=== PATIENT | female | born 1945 | race African-American/Black ===

== ENCOUNTER → 2016-07-16 | Outpatient (CLI) | payer BC ==
[2015-09-10 17:48] VITALS: BP 131/78
[~2016-07-16] MED LIST: ALPR0.5T PO; AMIT50TA PO; ASPI81TA2 PO; CARV25TA2 PO; FAMO-63 PO; LOSA100T6 PO; SIMV20TA3 PO; SIMV40TA3 PO
--- NOTE | 2016-07-16 15:48 | CARD ---
APPROVED REPORT EXAM: Two-dimensional and M-mode echocardiogram with Doppler and color Doppler. Other Information Quality : Average Rhythm : NSR with PACS, PPM INDICATION Cardiomyopathy 2D DIMENSIONS RVDd2.7 (2.9-3.5cm)Left Atrium(2D)3.9 (1.6-4.0cm) IVSd0.7 (0.7-1.1cm)Aortic Root(2D)2.6 (2.0-3.7cm) LVDd5.3 (3.9-5.9cm)LVOT Diameter2.0 (1.8-2.4cm) PWd0.7 (0.7-1.1cm)LVDs4.2 (2.5-4.0cm) FS (%) 19.7 %SV53.9 ml LVEF(%)40.1 (>50%) Aortic Valve AoV Peak Chester.130.8cm/sAoV VTI25.7cm AO Peak GR.6.8mmHgLVOT Peak Chester.89.0cm/s LVOT VTI 21.11cmAO Mean GR.4mmHg JENISE (VMAX)2.42ru9TMJ (VTI)2.47cm2 AI P 1/2 Kmmh089zi Mitral Valve MV E Ctlrjunx300.5cm/sMV DECEL DIDD034ux MV A Iknaeftr633.9cm/sMV E Mean Gr.3mmHg MV XSJ17odJ/A Ratio1.0 MV A Yifnbvet234jmMNU (PHT)6.54cm2 TDI E/Lateral E'15.5E/Medial E'16.3 Pulmonary Valve PV Peak Xituoomy82.3cm/sPV Peak Grad.3mmHg RVOT VTI12.4cm Tricuspid Valve TR P. Ntwcjpna620wb/sRAP WASCAKDF2wfKo TR Peak Gr.37tzCsIOQL48hpOn Pulmonary Vein S1 Tryivvak17.6cm/sD2 Tiiqkamv15.9cm/s LEFT VENTRICLE The left ventricle is normal size. There is normal left ventricular wall thickness. Left ventricle sy stolic function is mildly impaired. The Ejection Fraction is 40-45%. Septal motion consistent with co nduction abnormality. The left ventricular diastolic function and filling is normal for age. There is no ventricular septal defect visualized. RIGHT VENTRICLE The right ventricle is normal size. The right ventricular systolic function is normal. There is a pac emaker/ICD lead seen in the RV/RA. ATRIA The left atrium size is normal. The right atrium size is normal. The interatrial septum is intact wit h no evidence for an atrial septal defect or patent foramen ovale as noted on 2-D or Doppler imaging. Pacemaker lead noted in right atrium and right ventricle. AORTIC VALVE The aortic valve is normal in structure and function. The aortic valve is trileaflet. Doppler and Col or Flow revealed trace to mild aortic regurgitation. There is no significant aortic valvular stenosis . MITRAL VALVE Status post mitral valve ring. The mitral valve leaflets appear nomal in function. There is no mitral valve stenosis. Doppler and Color Flow revealed mild mitral regurgitation. TRICUSPID VALVE The tricuspid valve is normal in structure and function. Doppler and Color Flow revealed mild tricusp id regurgitation. The PA pressure was estimated at 33 mmHg. There is no tricuspid valve stenosis. PULMONIC VALVE The pulmonic valve is not well visualized. Doppler and Color Flow revealed mild pulmonic valvular reg urgitation. There is no pulmonic valvular stenosis. GREAT VESSELS The aortic root is normal in size. Normal pulmonary venous flow (Doppler). The IVC is normal in size and collapses >50% with inspiration. PERICARDIAL EFFUSION There is no evidence of significant pericardial effusion. Critical Notification Critical Value: No <Conclusion> Left ventricle systolic function is mildly impaired. The Ejection Fraction is 40-45%. Pacemaker lead noted in right atrium and right ventricle. Trace to mild aortic regurgitation. Mild mitral regurgitation. Mild tricuspid regurgitation. The PA pressure was estimated at 33 mmHg. There is no evidence of significant pericardial effusion.
== END | disposition home or self-care (01) ==
LOC: ECHO 08:46
PROVIDERS: ATTEND Internal Medicine Cardiovascular Disease
DX: I42.9 Cardiomyopathy, unspecified (principal); I08.3 Combined rheumatic disorders of mitral, aortic and tricuspid valves
CPT/HCPCS: 93306

== ENCOUNTER → 2016-12-21 | Outpatient (CLI) | payer BC ==
[2015-09-10 17:48] VITALS: BP 131/78
[~2016-12-21] MED LIST changes: +ASPI-630 PO; -ASPI81TA2 PO
== END | disposition home or self-care (01) ==
LOC: RT 18:21
PROVIDERS: ATTEND Internal Medicine Cardiovascular Disease
DX: G47.33 Obstructive sleep apnea (adult) (pediatric) (principal)
CPT/HCPCS: 95810

== ENCOUNTER → 2017-02-17 | Outpatient (CLI) | payer BC ==
[2015-09-10 17:48] VITALS: BP 131/78
--- NOTE | 2017-02-17 14:23 | RAD ---
2 views of the Chest 02/17/2017 2:00 AM Indication: DYSPNEA Comparison: Chest radiograph September 05, 2015 Findings: There is a dual-lead pacemaking/ICD device from a left subclavian approach, grossly similar are study. Prior valve repair noted. Heart size is stable. Decreased inspiratory volumes are noted which augments the cardiomediastinal silhouette and pulmonary vasculature. Possible minimal basilar atelectasis is seen. No acute osseous changes are identified. Impression: Low lung volumes with possible mild basilar atelectasis. No other acute cardiopulmonary process is seen.
== END | disposition home or self-care (01) ==
LOC: RAD 13:33
PROVIDERS: ATTEND Internal Medicine Critical Care Medicine
DX: R91.8 Other nonspecific abnormal finding of lung field (principal); R06.00 Dyspnea, unspecified
CPT/HCPCS: 71020

== ENCOUNTER → 2017-05-07 | Outpatient (CLI) | payer BC ==
[2017-05-07 12:06] LABS: BLOOD UREA NITROGEN 14 mg/dL (7-20)
[2017-05-07 12:06] LABS: CREATININE 1.3 mg/dL (0.6-1.0); GFR 48.7
[2017-05-07] MEDS: IOHEXOL 300 MG/ML 100ML VIAL. IV ×2 (12:28)
== END | disposition home or self-care (01) ==
LOC: CT 11:17
DX: J40 Bronchitis, not specified as acute or chronic (principal); J98.11 Atelectasis; I51.7 Cardiomegaly; E01.0 Iodine-deficiency related diffuse (endemic) goiter
CPT/HCPCS: 36415; 71275; 82565; 84520; Q9967

== ENCOUNTER → 2017-05-21 | Outpatient (CLI) | payer BC | END | disposition home or self-care (01) | LOC: ECHO 09:05 | DX: I08.3 Combined rheumatic disorders of mitral, aortic and tricuspid valves (principal); I70.0 Atherosclerosis of aorta; E66.9 Obesity, unspecified; Z95.0 Presence of cardiac pacemaker | CPT/HCPCS: 93306 ==

== ENCOUNTER 2017-06-14 08:49 | Outpatient (CLI) | payer BC ==
[~2017-06-14 08:49] MED LIST changes: -ALPR0.5T PO; -AMIT50TA PO; -ASPI-630 PO; -CARV25TA2 PO; -FAMO-63 PO; +IODIXANOL 320 MG/ML 100 ML VIAL.; +LIDOCAINE 2% 20 ML VIAL.; -LOSA100T6 PO; -SIMV20TA3 PO; -SIMV40TA3 PO
[2017-06-14 09:16] LABS: HEMATOCRIT 41.7 % (36.0-47.0); HEMOGLOBIN 13.8 g/dL (12.0-15.5); MEAN CORPUSCULAR HEMOGLOBIN 32 pg (25-35); MEAN CORPUSCULAR HGB CONC 33 g/dL (31-37); MEAN CORPUSCULAR VOLUME 96 fL (79-100); PLATELET COUNT 223 x10^3/uL (140-400); RED BLOOD COUNT 4.34 x10^6/uL (3.50-5.40); WHITE BLOOD COUNT 8.7 x10^3/uL (4.0-11.0)
[2017-06-14 09:23] LABS: ANION GAP 9 (6-14); BLOOD UREA NITROGEN 13 mg/dL (7-20); CALCIUM 8.8 mg/dL (8.5-10.1); CARBON DIOXIDE 27 mmol/L (21-32); CHLORIDE 109 mmol/L (98-107); CREATININE 1.2 mg/dL (0.6-1.0); GFR 53.4; GLUCOSE 120 mg/dL (70-99); POTASSIUM 4.2 mmol/L (3.5-5.1); SODIUM 145 mmol/L (136-145)
[2017-06-14 09:26] LABS: PROTHROMBIN TIME PATIENT 12.4 SEC (11.7-14.0)
[2017-06-14] MEDS ORDERED: MIDAZOLAM HCL/PF 5 MG/5 ML VIAL. (10:57)
[2017-06-14] MEDS ORDERED: fentaNYL PF VIAL 250 MCG/5 ML VIAL (10:57)
[2017-06-14] MEDS: MIDAZOLAM HCL/PF 5 MG/5 ML VIAL. IV (11:15)
[2017-06-14] MEDS: LIDOCAINE 2% 20 ML VIAL. IJ (11:15)
[2017-06-14] MEDS: fentaNYL PF VIAL 250 MCG/5 ML VIAL IV (11:15)
[2017-06-14] MEDS: IODIXANOL 320 MG/ML 100 ML VIAL. IART (11:15)
[2017-06-14] MEDS ORDERED: diphenhydrAMINE 50 MG/ML VIAL (11:18)
[2017-06-14] MEDS: diphenhydrAMINE 50 MG/ML VIAL IVP (11:30)
[2017-06-14] MEDS ORDERED: IV 1/2 NORMAL SALINE 1,000 ML IV (12:18)
[2017-06-14] MEDS ORDERED: NITROGLYCERIN SUBLINGUAL 0.4 MG BOTTLE OF 25. SL (12:30)
== END 2017-06-14 15:11 | disposition home or self-care (01) ==
LOC: CCL 08:49
DX: I51.9 Heart disease, unspecified (principal); I50.9 Heart failure, unspecified
CPT/HCPCS: 36415; 80048; 85027; 85610; 93460; 99152; 99153; C1769; C1771; C1773; C1892; G0269; J1200; J1644; J2250; J3010

== ENCOUNTER → 2017-07-21 | Outpatient (CLI) | payer BC ==
[2017-07-21] MEDS: ZOLPIDEM 5 MG TABLET. PO (22:30)
== END | disposition home or self-care (01) ==
LOC: RT 18:35
DX: G47.33 Obstructive sleep apnea (adult) (pediatric) (principal)
CPT/HCPCS: 95811

== ENCOUNTER → 2018-06-20 | Outpatient (CLI) | payer BC ==
[2017-06-14 14:20] VITALS: BP 126/80
[~2018-06-20] MED LIST changes: +ALPR0.5T PO; +AMIT50TA PO; +AMLO5TAB10 PO; +ASPI-630 PO; +BREO ELLIPTA 11 EACH IH; +CARV25TA2 PO; +FAMO-63 PO; -IODIXANOL 320 MG/ML 100 ML VIAL.; -LIDOCAINE 2% 20 ML VIAL.; +LOSA100T14 PO; +MIRT30TA3 PO; +SIMV20TA3 PO; +SIMV40TA3 PO
--- NOTE | 2018-06-20 10:37 | CARD ---
MR#: [id number] Date of Study: 06/20/2018 Ordering Physician: LOYDA GARCIA, Referring Physician: LOYDA GARCIA Tech: Dottie Ramirez ROSA MARIA APPROVED REPORT EXAM: Two-dimensional and M-mode echocardiogram with Doppler and color Doppler. Other Information Quality : AverageHR: 85bpm Rhythm : NSR INDICATION Cardiomyopathy 2D DIMENSIONS RVDd3.1 (2.9-3.5cm)Left Atrium(2D)4.1 (1.6-4.0cm) IVSd0.7 (0.7-1.1cm)Aortic Root(2D)2.9 (2.0-3.7cm) LVDd4.8 (3.9-5.9cm)LVOT Diameter1.9 (1.8-2.4cm) PWd0.8 (0.7-1.1cm)LVDs3.8 (2.5-4.0cm) FS (%) 22.3 %SV49.0 ml LVEF(%)40.0 (>50%) M-Mode DIMENSIONS Left Atrium(MM)3.55 (2.5-4.0cm)Aortic Root3.24 (2.2-3.7cm) Aortic Valve AoV Peak Chester.136.8cm/sAoV VTI29.2cm AO Peak GR.7.5mmHgLVOT Peak Chester.92.4cm/s AO Mean GR.4mmHgAVA (VMAX)1.89cm2 JENISE (VTI)1.95tv1FV P 1/2 Gfgr1619xx Mitral Valve MV E Nfzqjtfd335.0cm/sMV E Peak Gr.6mmHg MV DECEL SQSR642ecGU A Yskfregl994.2cm/s MV E Mean Gr.3mmHgE/A Ratio0.9 MV A Gfdklgta70xe Pulmonary Valve PV Peak Tqtobofd03.3cm/s Tricuspid Valve TR P. Ojdphymj662bd/sRAP UKKMUNVA3dyFo TR Peak Gr.56wcUpIUGD67ywRg LEFT VENTRICLE The left ventricle is normal size. There is normal left ventricular wall thickness. The systolic func tion is mildly impaired. The Ejection Fraction is 40-45%. There is global hypokinesis of the left burton tricle with septal motion suggestive of conduction defect. Transmitral Doppler flow pattern is Grade II-pseudonormal filling dynamics. RIGHT VENTRICLE The right ventricle is normal size. There is normal right ventricular wall thickness. The right ventr icular systolic function is normal. Pacer/ICD lead noted in RV/RA. ATRIA The left atrium is mildly dilated. The right atrium is mildly dilated. The interatrial septum is inta ct with no evidence for an atrial septal defect or patent foramen ovale as noted on 2-D or Doppler im aging. AORTIC VALVE The aortic valve is thickened but opens well. The aortic valve is probablly trileaflet. Doppler and C olor Flow revealed trace aortic regurgitation. There is no significant aortic valvular stenosis. Ther e is no aortic valvular vegetation. MITRAL VALVE There is a prior mitral ring in place. There is no evidence of mitral valve prolapse. There is no nory ral valve stenosis. MG 2.7 mm Hg. Doppler and Color-flow revealed trace mitral regurgitation. TRICUSPID VALVE The tricuspid valve is normal in structure and function. Doppler and Color Flow revealed trace tricus pid regurgitation. The PA pressure was estimated at 27 mmHg. There is no tricuspid valve prolapse or vegetation. There is no tricuspid valve stenosis. PULMONIC VALVE Doppler and Color Flow revealed trace pulmonic valvular regurgitation. There is no pulmonic valvular stenosis. GREAT VESSELS The aortic root is normal in size. The ascending aorta is normal in size. The IVC is normal in size a nd collapses >50% with inspiration. PERICARDIAL EFFUSION There is no evidence of significant pericardial effusion. Critical Notification Critical Value: No <Conclusion> The systolic function is mildly impaired. The Ejection Fraction is 40-45%. There is global hypokinesis of the left ventricle with septal motion suggestive of conduction defect. Pacer/ICD lead noted in RV/RA. There is a prior mitral ring in place. Signed by : Jan Bowie, Electronically Approved : 06/20/2018 10:36:13
== END | disposition home or self-care (01) ==
LOC: ECHO 09:20
PROVIDERS: ATTEND Internal Medicine Cardiovascular Disease
DX: I42.8 Other cardiomyopathies (principal); Z95.810 Presence of automatic (implantable) cardiac defibrillator
CPT/HCPCS: 93306

== ENCOUNTER → 2019-01-11 | Outpatient (CLI) | payer BC ==
[2017-06-14 14:20] VITALS: BP 126/80
[~2019-01-11] MED LIST changes: +REGADENOSON 0.4 MG/5 ML DISP.SYRIN. IV ONE
--- NOTE | 2019-01-11 12:49 | RAD ---
MR#: [id number] Date of Study: 01/11/2019 Ordering Physician: LOYDA GARCIA, Referring Physician: WILLIS KLEIN Tech: DANILO Rae ARRT (R) (N) APPROVED REPORT Test Type: Pharmacological Stress Nurse/Tech: Radha Tejada RN Test Indications: Non-ischemic cardiomyopathy Cardiac History: CAD,CABG,PTCA, Hypertension, High cholesterol Medications: See Electronic Medical Record Medical History: See Electronic Medical Record Resting ECG: SR Resting Heart Rate: 88 bpm Resting Blood Pressure: 132/56mmHg Pretest Chest Pain: No chest pain Nurse/Tech Notes S1,S2 and lungs clear to auscultation. Consent: The procedure was explained to the patient in lay terms. Informed consent was witnessed. Tamir eout was entered into [employer]. History and Stress Test performed by DANILO Rae ARRT (R) (N) Pharm. Details Pharmacologic stress testing was performed using 0.4mg per 5ml of regadenoson given intravenously ove r 7-10 seconds. Stress Symptoms No chest pain or symptoms. POST EXERCISE Reason for Termination: Infusion complete Target HR: No Max HR: 112 bpm 90% of Maximum Predicted HR: 124 bpm Max Blood Pressure: 149/74mmHg Blood Pressure response to exercise: Normal blood pressure response during stress. Heart Rate response to exercise: WNL Chest Pain: No. Arrhythmia: No. ST Change: No. INTERPRETATION Stress EKG Conclusion: Baseline EKG showed sinus rhythm. Non-diagnostic changes at peak stress. No arrhythmias. Imaging Protocol IMAGE PROTOCOL: Rest Tc-99m/stress Tc-99m 1 day Rest: Stress: Viability: Radiopharm.Tc99m KjtwghgryZq87s Sestamibi Awib80rIl 33mCi Img Date 01/11/2019 01/11/2019 Inj-Img Bxvy20bwv. 60min. Rest Admin Site:IV - Right AntecubitalAdministrator:DANILO Rae ARRT (R)(N) Stress Admin Site: IV - Right AntecubitalAdministrator: Braulio Piña, RT (R)(N) STRESS DATA End Diast. Vol.97.0mlLVEDV index BSA50.0ml End Syst. Vol.49.0mlLVESV index BSA25.0ml Myocardial Jkyx123.0gEject. Yprfxrly64.0% Stress Scores Regional WT2.00Summed WT11.00 Regional WM0.00Summed WM17.00 LV Perfusion Scintigraphic images did not show any significant fixed or reversible defects Wall Motion Mild left ventricular sytolic dysfunction with ejection fraction calculated at 48%. LV Perf. Quant 17 Seg. SSS0.00 17 Seg. SRS3.00 17 Seg. SDS0.00 Stress Defect Extent (% LAD)0.00Rest Defect Extent (% LAD)3.80Rev. Defect Extent (% LAD)0.00 Stress Defect Extent (% LCX) 0.00Rest Defect Extent (% LCX)13.80Rev. Defect Extent (% LCX)0.00 Stress Defect Extent (% RCA)0.00Rest Defect Extent (% RCA)0.00Rev. Defect Extent (% RCA)0.00 Stress Defect Extent (% CAMACHO)0.00Rest Defect Extent (% CAMACHO)4.30Rev. Defect Extent (% CAMACHO)0.00 Conclusion 1. Regadenoson cardioisotope stress test did not show any evidence of ischemia or infarct. 2. Mild left ventricular sytolic dysfunction with ejection fraction calculated at 48%. 3. Low risk for cardiac events. Signed by : Loyda Garcia, Electronically Approved : 01/11/2019 12:49:17
== END | disposition home or self-care (01) ==
LOC: NM 08:45
PROVIDERS: ATTEND Internal Medicine Cardiovascular Disease
DX: I42.9 Cardiomyopathy, unspecified (principal); I11.9 Hypertensive heart disease without heart failure; I25.10 Atherosclerotic heart disease of native coronary artery without angina pectoris; E78.5 Hyperlipidemia, unspecified; Z95.1 Presence of aortocoronary bypass graft; Z98.61 Coronary angioplasty status
CPT/HCPCS: 78452; 93017; A9500; J2785

== ENCOUNTER → 2019-10-12 | Outpatient (CLI) | payer BC ==
[2017-06-14 14:20] VITALS: BP 126/80
[~2019-10-12] MED LIST changes: -REGADENOSON 0.4 MG/5 ML DISP.SYRIN. IV ONE; +SIMV20TA18 PO; -SIMV20TA3 PO; +SIMV40TA18 PO; -SIMV40TA3 PO
--- NOTE | 2019-10-12 14:33 | CARD ---
MR#: [id number] Date of Study: 10/12/2019 Ordering Physician: LOYDA GARCIA, Referring Physician: LOYDA GARCIA, Tech: Michelle Bestame APPROVED REPORT EXAM: Two-dimensional and M-mode echocardiogram with Doppler and color Doppler. Other Information Quality : AverageHR: 70bpm INDICATION Cardiomyopathy Surgery/Intervention Pacemaker: Date: 2013 CABG: Date: 2011 RISK FACTORS Hypertension 2D DIMENSIONS RVDd3.0 (2.9-3.5cm)Left Atrium(2D)2.9 (1.6-4.0cm) IVSd0.9 (0.7-1.1cm)Aortic Root(2D)3.0 (2.0-3.7cm) LVDd5.0 (3.9-5.9cm)LVOT Diameter1.9 (1.8-2.4cm) PWd1.0 (0.7-1.1cm)LVDs4.1 (2.5-4.0cm) FS (%) 18.7 %SV46.3 ml LVEF(%)38.5 (>50%) Aortic Valve AoV Peak Chester.151.9cm/sAoV VTI28.3cm AO Peak GR.9.2mmHgLVOT Peak Chester.106.3cm/s LVOT VTI 21.22cmAO Mean GR.5mmHg JENISE (VMAX)1.04bs0JIV (VTI)2.12cm2 AI P 1/2 Nzie415sz Mitral Valve MV E Yaxlndlg42.0cm/sMV DECEL ZHPW941ut MV A Ghzhodio462.9cm/sMV E Mean Gr.4mmHg MV GJU09qfN/A Ratio1.0 MVA (PHT)3.85cm2 TDI E/Lateral E'15.1E/Medial E'16.1 Pulmonary Valve PV Peak Gjjcnjdq14.3cm/sPV Peak Grad.2mmHg Tricuspid Valve TR P. Ioksvcex542vz/sRAP PJESLUHR0xxKs TR Peak Gr.29mmHg Pulmonary Vein S1 Praaujki21.8cm/sD2 Rgsevegg20.7cm/s PVa dplzwdva386lcom LEFT VENTRICLE The left ventricle is normal size. There is normal left ventricular wall thickness. The left ventricu lar systolic function is mild to moderately impaired. The Ejection Fraction is 40%. There is global h ypokinesis of the left ventricle. Tissue Doppler imaging reveals mild left ventricular diastolic dysf unction. RIGHT VENTRICLE The right ventricle is borderline dilated. There is normal right ventricular wall thickness. Systolic function is borderline reduced. ATRIA The left atrium is borderline dilated. The right atrium is mildly dilated. The interatrial septum is intact with no evidence for an atrial septal defect or patent foramen ovale as noted on 2-D or Dopple r imaging. AORTIC VALVE The aortic valve is thickened but opens well. Doppler and Color Flow revealed mild aortic regurgitati on. Calculated aortic valve area is 1.98 cm2 with maximum pressure gradient of 11 mmHg and mean press ure gradient of 5 mmHg. There is no significant aortic valvular stenosis. MITRAL VALVE The mitral valve is normal in structure and function. There is no evidence of mitral valve prolapse. There is no mitral valve stenosis. Doppler and Color-flow revealed trace to mild mitral regurgitation . TRICUSPID VALVE The tricuspid valve is normal in structure and function. Doppler and Color Flow revealed Mild tricusp id regurgitation with an estimated PAP of 32 mmHg. There is no tricuspid valve stenosis. PULMONIC VALVE The pulmonic valve is not well visualized. Doppler and Color Flow revealed trace pulmonic valvular re gurgitation. GREAT VESSELS The aortic root is normal in size. The IVC is normal in size and collapses >50% with inspiration. PERICARDIAL EFFUSION There is no evidence of significant pericardial effusion. Critical Notification Critical Value: No <Conclusion> The left ventricular systolic function is mild to moderately impaired. The Ejection Fraction is 40%. Pacer wire noted RA/RV. Mild aortic regurgitation. Trace to mild mitral regurgitation. Mild tricuspid regurgitation with an estimated PAP of 32 mmHg. There is no evidence of significant pericardial effusion. Signed by : Loyda Garcia, Electronically Approved : 10/12/2019 14:33:02
== END | disposition home or self-care (01) ==
LOC: ECHO 10:52
PROVIDERS: ATTEND Internal Medicine Cardiovascular Disease
DX: I08.3 Combined rheumatic disorders of mitral, aortic and tricuspid valves (principal); I42.9 Cardiomyopathy, unspecified; Z95.0 Presence of cardiac pacemaker
CPT/HCPCS: 93306

== ENCOUNTER → 2019-12-18 | Outpatient (CLI) | payer BC ==
[2017-06-14 14:20] VITALS: BP 126/80
[2019-12-18 09:47] LABS: ALBUMIN 3.5 g/dL (3.4-5.0); C-REACTIVE PROTEIN 3.6 mg/L (0-3.3); CALCIUM 9.2 mg/dL (8.5-10.1); CREATININE 1.4 mg/dL (0.6-1.0); GFR 44.4; POTASSIUM 3.9 mmol/L (3.5-5.1)
[2019-12-18 09:57] LABS: BASO % 0 % (0-3); EOS # 0.5 x10^3/uL (0.0-0.7); EOS % 6 % (0-3); HEMATOCRIT 40.4 % (36.0-47.0); HEMOGLOBIN 13.1 g/dL (12.0-15.5); LYMPH # 1.8 x10^3/uL (1.0-4.8); LYMPH % 24 % (24-48); MEAN CORPUSCULAR HEMOGLOBIN 31 pg (25-35); MEAN CORPUSCULAR HGB CONC 33 g/dL (31-37); MEAN CORPUSCULAR VOLUME 96 fL (79-100); MONO # 0.5 x10^3/uL (0.0-1.1); MONO % 7 % (0-9); NEUT # 4.8 x10^3/uL (1.8-7.7); NEUT % 62 % (31-73); PLATELET COUNT 211 x10^3/uL (140-400); RED BLOOD COUNT 4.22 x10^6/uL (3.50-5.40); RED CELL DISTRIBUTION WIDTH 15.1 % (11.5-14.5); WHITE BLOOD COUNT 7.7 x10^3/uL (4.0-11.0)
[2019-12-18 10:13] LABS: PROTHROMBIN TIME PATIENT 12.5 SEC (11.7-14.0)
--- NOTE | 2019-12-18 13:31 | EKG ---
[facility] [address] [place] [address] Test Date: 2019-12-18 Test Time: 13:29:08 Pat Name: DENISHA BOND Department: Room: Gender: F Cpr Instructor: HENRY : 1945 Requested By: WIL SCHULTZ Order Number: [id number] Reading MD: Jan Bowie MD Measurements Intervals [place] Rate: 85 P: -24 RI: 222 QRS: -13 QRSD: 86 T: 90 QT: 406 QTc: 489 Interpretive Statements SINUS RHYTHM VENTRICULAR PREMATURE COMPLEX(ES) PROLONGED RI INTERVAL Electronically Signed On 12-19-2019 9:55:21 CDT by Jan Bowie MD
--- NOTE | 2019-12-18 15:40 | RAD ---
Chest radiograph 12/18/2019 9:02 AM INDICATION: Hypertension, preoperative COMPARISON: 02/17/2017 TECHNIQUE: Frontal and lateral views of the chest are provided. FINDINGS: The cardiomediastinal silhouette is within normal limits. Left chest wall cardiac device is identified in place. No right atrium and right ventricle. Cardiac valvular prosthesis is noted. There are no pleural effusions. There is no pulmonary vascular congestion. There is no pneumothorax. Bibasilar linear opacities are present which may represent subsegmental atelectasis versus scarring. No significant osseous abnormality is identified. IMPRESSION: Bibasilar linear opacities may represent subsegmental atelectasis versus scarring, new from 02/15/2017. Developing interstitial pneumonitis may have similar appearance. Electronically signed by: Francie Thomas MD (12/18/2019 3:37 PM) [id number]
[2019-12-19 00:08] LABS: HEMOGLOBIN A1C 5.5 % (4.8-5.6)
== END | disposition home or self-care (01) ==
LOC: SURGPAT 13:13
PROVIDERS: ATTEND Orthopaedic Surgery Sports Medicine
DX: Z01.812 Encounter for preprocedural laboratory examination (principal); I10 Essential (primary) hypertension; M17.12 Unilateral primary osteoarthritis, left knee; Z96.652 Presence of left artificial knee joint
CPT/HCPCS: 36415; 71046; 80048; 82040; 82306; 83036; 85025; 85610; 85730; 86140; 87641; 93005

== ENCOUNTER → 2019-12-28 | Outpatient (CLI) | payer BC ==
[2017-06-14 14:20] VITALS: BP 126/80
== END | disposition home or self-care (01) ==
LOC: LAB 13:33
PROVIDERS: ATTEND Orthopaedic Surgery Sports Medicine
DX: Z01.812 Encounter for preprocedural laboratory examination (principal); Z20.828 Contact with and (suspected) exposure to other viral communicable diseases; M17.12 Unilateral primary osteoarthritis, left knee
CPT/HCPCS: U0003-CS

== ENCOUNTER → 2020-01-19 | Outpatient (CLI) | payer BC ==
[2017-06-14 14:20] VITALS: BP 126/80
[~2020-01-19] MED LIST changes: +AMLO-186 PO; -AMLO5TAB10 PO; +CETI10TA16 PO; +OMEP40CA45 PO; +TRAM50TA PO
== END ==
LOC: LAB 13:36
PROVIDERS: ATTEND Orthopaedic Surgery
DX: Z01.812 Encounter for preprocedural laboratory examination (principal); Z20.828 Contact with and (suspected) exposure to other viral communicable diseases; M19.90 Unspecified osteoarthritis, unspecified site
CPT/HCPCS: U0003

== ENCOUNTER → 2020-05-01 | Outpatient (CLI) | payer BC ==
[2020-01-26 08:02] VITALS: BP 137/71
[~2020-05-01] MED LIST changes: +MIRT-8 PO; -MIRT30TA3 PO; -OMEP40CA45 PO; +OMEP40CA7 PO; +REGADENOSON 0.4 MG/5 ML DISP.SYRIN. IV ONE
--- NOTE | 2020-05-02 16:43 | RAD ---
MR#: [id number] Date of Study: 05/01/2020 Ordering Physician: LOYDA GARCIA, Referring Physician: WILLIS KLEIN Tech: DANILO Rae ARRT (R) (N) APPROVED REPORT Test Type: Pharmacological Stress Nurse/Tech: aleksandar Hernandez RN Test Indications: CAD Cardiac History: CABG 2011, CAD, HTN, PPM Medications: See Electronic Medical Record Medical History: See Electronic Medical Record Resting ECG: SR Resting Heart Rate: 79 bpm Resting Blood Pressure: 128/73mmHg Pretest Chest Pain: None Nurse/Tech Notes lungs CTA, S1S2 Consent: The procedure was explained to the patient in lay terms. Informed consent was witnessed. Tamir eout was entered into [employer]. History and Stress Test performed by RT Derik JeterR) (N) Pharm. Details Pharmacologic stress testing was performed using 0.4mg per 5ml of regadenoson given intravenously ove r 7-10 seconds. Stress Symptoms No chest pain or symptoms. POST EXERCISE Reason for Termination: Infusion complete Max HR: 120 bpm Max Blood Pressure: 130/72mmHg Blood Pressure response to exercise: Normal blood pressure response during stress. Heart Rate response to exercise: normal response Chest Pain: No. Arrhythmia: No. ST Change: No. INTERPRETATION Stress EKG Conclusion: No evidence of stress induced EKG changes. Imaging Protocol IMAGE PROTOCOL: Rest Tc-99m/stress Tc-99m 1 day Rest: Stress: Viability: Radiopharm.Tc99m ZpkqpncvrQx78r Sestamibi Sukf48sRy 33mCi Img Date 05/01/2020 05/01/2020 Inj-Img Dgzv75jiy. 60min. Rest Admin Site:IV - Left AntecubitalAdministrator:DANILO Rae ARRT (R)(N) Stress Admin Site: IV - Right AntecubitalAdministrator: RT Bhumi Jeter)(N) STRESS DATA End Diast. Vol.120.0mlLVEDV index BSA65.0ml End Syst. Vol.49.0mlLVESV index BSA27.0ml Myocardial Qpsz061.0gEject. Jxthzdsu17.0% Stress Scores Regional WT1.00Summed WT11.00 Regional WM0.00Summed WM11.00 The rest and stress images show normal perfusion, normal contraction and thickening. LV Perf. Quant 17 Seg. SSS0.00 17 Seg. SRS0.00 17 Seg. SDS0.00 Stress Defect Extent (% LAD)0.00Rest Defect Extent (% LAD)0.00Rev. Defect Extent (% LAD)0.00 Stress Defect Extent (% LCX) 0.00Rest Defect Extent (% LCX)5.00Rev. Defect Extent (% LCX)0.00 Stress Defect Extent (% RCA)0.00Rest Defect Extent (% RCA)0.00Rev. Defect Extent (% RCA)0.00 Stress Defect Extent (% CAMACHO)0.00Rest Defect Extent (% CAMACHO)0.90Rev. Defect Extent (% CAMACHO)0.00 Other Information Quality:Good Risk Assessment: Low Risk Conclusion 1. No evidence of EKG changes with stress testing. 2. Normal perfusion at stress/rest. 3. Low normal EF at 55% 4. Low risk study. Signed by : Jan Bowie, Electronically Approved : 05/02/2020 16:43:10
== END ==
LOC: NM 08:02
PROVIDERS: ATTEND Internal Medicine Cardiovascular Disease
DX: I25.10 Atherosclerotic heart disease of native coronary artery without angina pectoris (principal); I10 Essential (primary) hypertension; I42.9 Cardiomyopathy, unspecified
CPT/HCPCS: 78452; 93017; A9500; J2785

== ENCOUNTER 2021-06-03 17:26 | Emergency (ER) | payer MEDICARE ==
[~2021-06-03] VITALS: Ht 162.6 cm; Wt 83.0 kg
[~2021-06-03 17:26] MED LIST changes: -REGADENOSON 0.4 MG/5 ML DISP.SYRIN. IV ONE
--- NOTE | 2021-06-03 19:46 | RAD ---
XR KNEE _3 VIEWS_LT History: Reason: fall pain / Spl. Instructions: / History: Technique: 3 views left knee Comparison: None. Findings: No dislocation. No acute fracture. Left total knee arthroplasty. Vascular calcifications. Impression: 1. No acute osseous abnormality. 2. Left total knee arthroplasty. Electronically signed by: Scottie Gonsales DO (06/03/2021 7:44 PM) [facility]
--- NOTE | 2021-06-03 19:51 | PHYS DOC ---
Past Medical History Past Medical History: Hypertension, Pneumonia (CARLA SANDOVAL Cody [employer]ESSION[employer]) Past Surgical History: Appendectomy, Cholecystectomy, Hysterectomy, Pacemaker, Other Additional Past Surgical Histo: CABG (CARLA SANDOVAL Cody [employer] PROFESSIONAL) Smoking Status: Never Smoker Alcohol Use: Occasionally Drug Use: None (CARLA SANDOVAL Cody [employer]) General Adult EDM: Chief Complaint: MECHANICAL FALL HPI: HPI: Patient is a 75 year old female who presents to the ED today complaining of mild right ankle/foot pain and left knee pain that began after she fell. Patient states she was walking at a grocery store parking lot and tripped over the grooves of the parking lot. Patient denies hitting her head on the ground. Denies any loss of consciousness. States the pain is worse on weightbearing. Denies anything specifically relieving the pain. (CARLA SANDOVAL Cody [employer] PROFESSIONAL) Review of Systems: Review of Systems: Constitutional: Denies fever or chills. [] Musculoskeletal: Reports right ankle pain/right foot pain, left knee pain Integument: Denies rash. [] Neurologic: Denies headache, focal weakness or sensory changes. [] Psychiatric: Denies depression or anxiety. [] (LORICARLA C[employer]ER C[employer] PROFESSIONAL) Heart Score: C/O Chest Pain: N/A Risk Factors: Risk Factors: DM, Current or recent (<one month) smoker, HTN, HLP, family history of CAD, obesity. Risk Scores: Score 0 - 3: 2.5% MACE over next 6 weeks - Discharge Home Score 4 - 6: 20.3% MACE over next 6 weeks - Admit for Clinical Observation Score 7 - 10: 72.7% MACE over next 6 weeks - Early Invasive Strategies (COOPERCARLA Porras [employer] PROFESSIONAL) Allergies: Allergies: Allergies Coded Allergies Type Severity Reaction Last Updated Verified codeine Adverse Reaction Intermediate 12/28/19 Yes morphine Adverse Reaction Intermediate Anxiety 01/22/20 Yes (COOPERCARLA Porras [employer] PROFESSIONAL) Physical Exam: PE: Constitutional: Well developed, well nourished, no acute distress, non-toxic appearance. [] Skin: Warm, dry, no erythema, no rash. [] Back: No tenderness, no CVA tenderness. [] Extremities: Right foot and right ankle with no obvious deformity. Tenderness diffusely on top of the foot to the anterior ankle. No navicular bone tenderness, no tenderness of the base of the fifth metatarsal of the right foot. Full range of motion to the right toes and foot. +2 right pedal pulse. Cap refill less than 2 seconds to right toes. Left ankle with no deformity. No tenderness on the ankle. Full range of motion to the left ankle, negative Lorna sign, negative Leni sign, negative anterior posterior drawer sign. +2 left pedal pulse, cap refill less than 2 seconds in left lower extremity, sensation intact to the left lower extremity Neurologic: Alert and oriented X 3, normal motor function, normal sensory functi on, no focal deficits noted. [] Psychologic: Affect normal, judgement normal, mood normal. [] (CARLA SANDOVAL C[employer] PROFESSIONAL) Current Patient Data: Vital Signs: Vital Signs Date Time Temp Pulse Resp B/P (MAP) Pulse Ox O2 Delivery O2 Flow Rate FiO2 06/03/21 17:45 98.7 115 16 158/98 (118) 95 Room Air 98.7 (CARLA SANDOVAL C[employer] PROFESSIONAL) EKG: EKG: [] (CARLA SANDOVAL C[employer] PROFESSIONAL) Radiology/Procedures: Radiology/Procedures: []PROCEDURE: KNEE LEFT 3V XR KNEE _3 VIEWS_LT History: Reason: fall pain / Spl. Instructions: / History: Technique: 3 views left knee Comparison: None. Findings: No dislocation. No acute fracture. Left total knee arthroplasty. Vascular calcifications. Impression: 1. No acute osseous abnormality. 2. Left total knee arthroplasty. Electronically signed by: Scottie Gonsales DO (06/03/2021 7:44 PM) [facility] DICTATED and SIGNED BY: SCOTTIE GONSALES DO DATE: 06/03/21 [id number] 0 PROCEDURE: FOOT RIGHT 3V XR FOOT_RIGHT 3 VIEWS, XR EXAM OF ANKLE_RIGHT 3VIEWS History: Reason: fall pain / Spl. Instructions: / History: Technique: 3 views right ankle and 3 views right foot Comparison: None. Findings: No dislocation. Symmetric ankle mortise. Mild ankle degenerative changes. Vascular calcifications. No acute fracture. Mild midfoot DJD. Postop changes first metatarsal. Moderate first MTP DJD. Normal alignment of the foot. No acute fracture. Impression: 1. No acute osseous abnormality. 2. Mild ankle and midfoot DJD. 3. Moderate first MTP DJD. Electronically signed by: Scottie Gonsales DO (06/03/2021 7:49 PM) [facility] DICTATED and SIGNED BY: SCOTTIE GONSALES DO DATE: 06/03/21 [id number] (CARLA SANDOVAL APRN) Course & Med Decision Making: Course & Med Decision Making Pertinent Labs and Imaging studies reviewed. (See chart for details) This is a 75-year-old female patient presenting to the ED today with right ankle/right foot pain, left knee pain, symptoms began after she tripped and fell today. Left knee x-rays are negative for any acute findings, right foot x-rays, right ankle x-rays are negative. Issac bandage is applied to the left knee and right ankle/foot. Ortho shoe provided by RN, neurovascular exam done by RN is normal. Discharge to home, follow-up with Ortho in 1 week (CARLA SANDOVAL APRN) Course & Med Decision Making Patients Care and treatment plan provided by ER Nurse Practitioner. I was available for consult. Patient's chart reviewed. (JUVE CHAO DO) Radhaon Disclaimer: Dragjulian Disclaimer: This electronic medical record was generated, in whole or in part, using a voice recognition dictation system. (CARLA SANDOVAL APRN) Departure Departure Impression: Primary Impression: Fall from standing Qualified Codes: W19.XXXA - Unspecified fall, initial encounter Additional Impressions: Right ankle sprain Qualified Codes: S93.401A - Sprain of unspecified ligament of right ankle, initial encounter Contusion of left knee Qualified Codes: S80.02XA - Contusion of left knee, initial encounter Disposition: HOME / SELF CARE / HOMELESS Condition: STABLE Referrals: RIGOBERTO LOPEZ MD (PCP) SUSAN OLIVA Jr. DO follow up in 1 week Patient Instructions: Ankle Sprain, Contusion Additional Instructions: You were evaluated in the emergency room for left knee and right ankle pain, your x-rays of the left knee, right ankle and foot are negative for any acute findings. Try to ice and elevate the affected extremities. Follow-up with the orthopedic doctor or the provided orthopedic doctor in 1 week. CARLA SANDOVAL APRN Jun 03, 2021 19:50 JUVE CHAO DO Jun 04, 2021 03:37
[2021-06-03 20:15] VITALS: BP 166/78
== END 2021-06-03 20:20 | disposition home or self-care (01) ==
LOC: ER 17:26
DX: S93.401A Sprain of unspecified ligament of right ankle, initial encounter (principal); S80.02XA Contusion of left knee, initial encounter; I10 Essential (primary) hypertension; Z95.0 Presence of cardiac pacemaker; Z90.89 Acquired absence of other organs; Z90.49 Acquired absence of other specified parts of digestive tract; Z90.710 Acquired absence of both cervix and uterus; Z95.1 Presence of aortocoronary bypass graft; Z88.5 Allergy status to narcotic agent; W18.09XA Striking against other object with subsequent fall, initial encounter; Y93.01 Activity, walking, marching and hiking; Y92.481 Parking lot as the place of occurrence of the external cause; Y99.8 Other external cause status
CPT/HCPCS: 73562; 73610; 73630; 96372; 99283; 99284; A6450

== ENCOUNTER → 2021-07-25 | Outpatient (CLI) | payer BC, MEDICARE ==
--- NOTE | 2021-07-28 09:01 | CARD ---
MR#: [id number] Date of Study: 07/25/2021 Ordering Physician: LOYDA COPPOLA, Referring Physician: LOYDA COPPOLA, Tech: JARRETT BHAKTA RDCS, T APPROVED REPORT EXAM: Two-dimensional and M-mode echocardiogram with Doppler and color Doppler. Other Information Quality : Good Rhythm : NSR INDICATION CAD Cardiomyopathy 2D DIMENSIONS Left Atrium(2D)3.5 (1.6-4.0cm)IVSd1.0 (0.7-1.1cm) Aortic Root(2D)3.0 (2.0-3.7cm)LVDd4.9 (3.9-5.9cm) LVOT Diameter2.1 (1.8-2.4cm)PWd0.7 (0.7-1.1cm) LVDs3.9 (2.5-4.0cm)FS (%) 20.5 % SV46.7 mlLVEF(%)41.7 (>50%) Aortic Valve AoV Peak Chester.161.3cm/Deonte Peak GR.10.4mmHg LVOT Peak Chester.94.7cm/sAVA (VMAX)1.56cm2 Mitral Valve MV E Xhctidlj630.3cm/sMV DECEL REMO487bj MV KBG16bsRDY (PHT)3.71cm2 Pulmonary Valve PV Peak Xykdlkcf38.5cm/sPV Peak Grad.2mmHg Tricuspid Valve TR P. Dngdmfuz419nj/sRAP QXADMICP8yuCf TR Peak Gr.09qaKwMBPY75gjJw Pulmonary Vein S1 Onpqrkqi04.7cm/sD2 Amarcjhg96.3cm/s LEFT VENTRICLE The left ventricle is normal size. There is normal left ventricular wall thickness. The left ventricl e systolic function is mildly diminished. The ejection fraction is estimated at 40 to 45% No left burton tricle thrombus noted on this study. There is no ventricular septal defect visualized. There is no le ft ventricular aneurysm. There is no mass noted in the left ventricle. RIGHT VENTRICLE The right ventricle is normal size. There is normal right ventricular wall thickness. The right ventr icular systolic function is normal. ATRIA The left atrium size is normal. There is a catheter/pacemaker lead seen in the right atrium. The inte ratrial septum is intact with no evidence for an atrial septal defect or patent foramen ovale as note d on 2-D or Doppler imaging. AORTIC VALVE The aortic valve is normal in structure and function. No aortic regurgitation is present. There is no aortic valvular stenosis. There is no aortic valvular vegetation. MITRAL VALVE The mitral valve is normal in structure and function. There is no evidence of mitral valve prolapse. There is no mitral valve stenosis. There is no mitral valve regurgitation noted. TRICUSPID VALVE The tricuspid valve is normal in structure and function. Trace tricuspid regurgitation. There is no t ricuspid valve prolapse or vegetation. There is no tricuspid valve stenosis. PULMONIC VALVE The pulmonary valve is normal in structure and function. There is no pulmonic valvular regurgitation. There is no pulmonic valvular stenosis. GREAT VESSELS The aortic root is normal in size. The ascending aorta is normal in size. The pulmonary artery is nor mal. The IVC is normal in size and collapses >50% with inspiration. PERICARDIAL EFFUSION There is no pleural effusion. There is no evidence of significant pericardial effusion. Critical Notification Critical Value: No <Conclusion> The left ventricle systolic function is mildly diminished. The ejection fraction is estimated at 40 to 45% Pacer wires noted RA/RV Trace tricuspid regurgitation. There is no evidence of significant pericardial effusion. Signed by : Loyda Coppola, Electronically Approved : 07/28/2021 09:01:09
== END ==
LOC: ECHO 09:34
PROVIDERS: ATTEND Internal Medicine Cardiovascular Disease
DX: I42.9 Cardiomyopathy, unspecified (principal); I25.10 Atherosclerotic heart disease of native coronary artery without angina pectoris
CPT/HCPCS: 93306; C8929